=== PATIENT | female | born 1960 | race Caucasian/White ===

== ENCOUNTER 2024-11-05 17:26 | Inpatient (IN) | payer MEDICAID ==
[~2024-11-05] VITALS: Ht 154.9 cm; Wt 69.9 kg
[2024-11-05 17:36] LABS: BILIRUBIN Negative (Negative); BLOOD Negative (Negative); CLARITY Cloudy (Clear); COLOR Yellow (Yellow); KETONE Negative (Negative); LEUKO ESTERASE 3+ (Negative); NITRITE Positive (Negative); PH 5.5 (4.5-8.0); SPECIFIC GRAVITY 1.010 (1.001-1.030); UROBILINOGEN 0.2 E.U./dl (0.0-1.0)
[2024-11-05 17:47] VITALS: BP 124/76
[2024-11-05 17:52] LABS: BASO # 0.1 10*3/uL (0.0-0.1); BASO % 0.8 % (0.0-1.0); EOS # 0.6 10*3/uL (0.0-0.4); EOS % 8.7 % (1.0-4.0); MEAN CELL VOLUME 91.5 fl (81.0-99.0); MEAN CORPUSCULAR HGB 29.9 pg (27.0-31.0); MEAN PLATELET VOLUME 9.1 fl (9.6-12.3); MONO # 0.3 10*3/uL (0.1-1.0); MONO % 5.2 % (3.0-9.0); NEUT # 4.4 10*3/uL (2.3-7.9); NEUT % 68.9 % (47.0-73.0); NUCLEATED RED BLOOD CELL 0.0 % (0.0-0.0); NUCLEATED RED BLOOD CELL 0.0 10*3/uL (0.0-0.0); PLATELET COUNT AUTOMATED 246 10*3/uL (130-400); RED CELL DISTRI WIDTH 13.5 % (0-14.5)
[2024-11-05 17:53] LABS: BACTERIA 3+; WBC TNTC wbc/hpf (0-5)
[2024-11-05 17:56] LABS: URINE AMPHETAMINES Negative (1000ng/ml); URINE BARBITURATES Negative (200ng/ml); URINE BENZODIAZEPINES Negative (200ng/ml); URINE CANNABINOIDS (THC) Negative (50ng/ml); URINE COCAINE Negative (300ng/ml); URINE METHADONE Negative (300ng/ml); URINE OPIATES Negative (300ng/ml); URINE PHENCYCLIDINE Negative (25ng/ml)
[2024-11-05 18:27] LABS: BUN 16 mg/dl (9-23); SGPT/ALT 15 U/L (5-49)
[2024-11-05 18:28] LABS: ETHYL ALCOHOL < 3.0 mg/dl (<3)
[2024-11-05] MEDS ORDERED: CEPHALEXIN 500 MG CAP PO ONE (18:30)
[2024-11-05 19:43] VITALS: BP 151/68
[2024-11-05] MEDS ORDERED: PROBIOTIC GOLD1 EACH PO (20:13)
[2024-11-05] MEDS ORDERED: AMBIEN5 MG PO (20:13)
[2024-11-05] MEDS ORDERED: VITAMIN C500 M4 PO (20:15)
[2024-11-05] MEDS ORDERED: ARTIFICIAL TEAR1514 OPH (20:15)
[2024-11-05] MEDS ORDERED: ASPERCREME LID113 G1 T (20:16)
[2024-11-05] MEDS ORDERED: ASPIRIN FOR CHI81 MG PO (20:17)
[2024-11-05] MEDS ORDERED: [UNRECOGNIZED DRUG - OTHER] PO (20:18)
[2024-11-05] MEDS ORDERED: BUDESONIDE-FO10.2 G1 INH (20:20)
[2024-11-05] MEDS ORDERED: CAPLYTA42 MG PO (20:22)
[2024-11-05] MEDS ORDERED: CALCIUM CARBON500 M3 PO (20:22)
[2024-11-05] MEDS ORDERED: CLOBETASOL PROP15 GM T (20:23)
[2024-11-05] MEDS ORDERED: CYCLOBENZAPRINE5 M3 PO (20:24)
[2024-11-05] MEDS ORDERED: DOXEPIN HCL6 MG PO (20:25)
[2024-11-05] MEDS ORDERED: DELSYM30 MG/5 M1 PO (20:25)
[2024-11-05] MEDS ORDERED: ERYTHROMYCIN OPH1 GM OPH (20:26)
[2024-11-05] MEDS ORDERED: FEMRING1 EACH V (20:28)
[2024-11-05] MEDS ORDERED: FEOSOL325 MG PO (20:28)
[2024-11-05] MEDS ORDERED: 24 HOUR ALLERG9.9 ML NAS (20:29)
[2024-11-05] MEDS ORDERED: NATURE'S BLEND F1 MG PO (20:30)
[2024-11-05] MEDS ORDERED: HEMORRHOID 1%-156 GM R (20:31)
[2024-11-05] MEDS ORDERED: HYDROXYCHLOROQ200 M1 PO (20:31)
[2024-11-05] MEDS ORDERED: LAMICTAL150 MG PO (20:32)
[2024-11-05] MEDS ORDERED: LEVOTHYROXINE125 MCG PO (20:32)
[2024-11-05] MEDS ORDERED: METHENAMINE HIPP1 G1 PO (20:33)
[2024-11-05] MEDS ORDERED: METHOTREXA25 MG/1 M6 SQ (20:34)
[2024-11-05] MEDS ORDERED: MILK OF MA400 MG/53 PO (20:34)
[2024-11-05] MEDS ORDERED: PROTONIX40 MG PO (20:35)
[2024-11-05] MEDS ORDERED: PEPCID20 MG PO (20:36)
[2024-11-05] MEDS ORDERED: PROMETHAZINE12.5 M3 PO (20:36)
[2024-11-05] MEDS ORDERED: REFRESH LIQUIGE15 M1 OPH (20:38)
[2024-11-05] MEDS ORDERED: TEGRETOL-XR200 MG PO (20:40)
[2024-11-05] MEDS ORDERED: EASIVENT CHAMBE1 KIT PO (20:40)
[2024-11-05] MEDS ORDERED: TYLENOL EXTRA500 MG PO (20:41)
[2024-11-05] MEDS ORDERED: VISTARIL25 MG PO ×2 (20:43→20:44)
[2024-11-05] MEDS ORDERED: VENT7GM INH (20:43)
[2024-11-05] MEDS ORDERED: VITAMIN D3125 MCG PO (20:44)
[2024-11-05] MEDS ORDERED: ZYRTEC10 M2 PO (20:46)
[2024-11-05] MEDS ORDERED: XIIDRA1 EACH OP (20:47)
[2024-11-05] MEDS ORDERED: Water, Sterile 10 ML VIAL IM PRN (21:00)
[2024-11-05] MEDS ORDERED: Doxepin Hydrochloride 10 MG/ML OZ PO SCH (21:00)
[2024-11-05] MEDS ORDERED: LORazepam 1 MG TAB PO PRN (21:00)
[2024-11-05] MEDS ORDERED: risperiDONE 1 MG TAB PO SCH (21:00)
[2024-11-05] MEDS ORDERED: hydrOXYzine hydrochloride 50 MG/ML VIAL IM PRN (21:00)
[2024-11-05] MEDS ORDERED: LAMOTRIGINE 100 MG TAB PO SCH (21:00)
[2024-11-05 21:14] VITALS: BP 124/67
[2024-11-05] MEDS ORDERED: ACETAMINOPHEN 325 MG TAB PO PRN (22:15)
[2024-11-05] MEDS ORDERED: MG-AL HYDROXIDE/SIMETICONE 30 ML UDC PO PRN (22:15)
[2024-11-05] MEDS ORDERED: Menthol/Zinc Oxide 4 GM THIN T PRN (22:35)
[2024-11-06] MEDS ORDERED: CEPHALEXIN 500 MG CAP PO SCH (06:25)
[2024-11-06 06:53] LABS: BASO # 0.1 10*3/uL (0.0-0.1); BASO % 1.2 % (0.0-1.0); EOS # 0.7 10*3/uL (0.0-0.4); EOS % 10.0 % (1.0-4.0); MEAN CELL VOLUME 91.3 fl (81.0-99.0); MEAN CORPUSCULAR HGB 30.0 pg (27.0-31.0); MEAN PLATELET VOLUME 9.5 fl (9.6-12.3); MONO # 0.4 10*3/uL (0.1-1.0); MONO % 6.5 % (3.0-9.0); NEUT # 3.9 10*3/uL (2.3-7.9); NEUT % 59.9 % (47.0-73.0); NUCLEATED RED BLOOD CELL 0.0 % (0.0-0.0); NUCLEATED RED BLOOD CELL 0.0 10*3/uL (0.0-0.0); PLATELET COUNT AUTOMATED 261 10*3/uL (130-400); RED CELL DISTRI WIDTH 13.7 % (0-14.5)
[2024-11-06 06:55] LABS: BUN 17 mg/dl (9-23); CARBAMAZEPINE (TEGRETOL) TOTAL 6.9 ug/ml (4-12); LDL CHOLESTEROL 64 mg/dL (9-159); SGPT/ALT 15 U/L (5-49)
[2024-11-06] MEDS ORDERED: Hypromellose 25 ML BOT OPH SCH (07:00)
[2024-11-06 08:04] VITALS: BP 93/65
[2024-11-06 08:32] LABS: VITAMIN D, 25-HYDROXY 59.1 ng/mL (30-100)
[2024-11-06] MEDS ORDERED: ASPIRIN, CHEWABLE 81 MG TAB PO SCH (09:00)
[2024-11-06] MEDS ORDERED: FERROUS SULFATE 325 MG TAB PO SCH (09:00)
[2024-11-06] MEDS ORDERED: BUDESONIDE 0.5 MG AMP NEB SCH (09:00)
[2024-11-06] MEDS ORDERED: ASCORBIC ACID 500 MG TAB PO SCH (09:00)
[2024-11-06] MEDS ORDERED: FOLIC ACID 1 MG TAB PO SCH (09:00)
[2024-11-06] MEDS ORDERED: Cholecalciferol 5,000 IU CAP (125 MCG) PO SCH (09:00)
[2024-11-06] MEDS ORDERED: XIIDRA 5% OPH SCH (09:00)
[2024-11-06] MEDS ORDERED: risperiDONE 0.5 MG TAB PO SCH (09:00)
[2024-11-06] MEDS ORDERED: FLUTICASONE PROPIONATE Nasal 16 Gm spray NAS SCH (10:00)
[2024-11-06 20:00] VITALS: BP 114/74
[2024-11-07 08:29] VITALS: BP 100/60
[2024-11-07 19:57] VITALS: BP 110/61
[2024-11-08 08:00] VITALS: BP 105/63
[2024-11-08 20:00] VITALS: BP 101/58
[2024-11-09 08:00] VITALS: BP 98/64
[2024-11-09 20:00] VITALS: BP 115/73
[2024-11-10 08:48] VITALS: BP 120/73
[2024-11-10 20:00] VITALS: BP 113/67
[2024-11-11 07:24] LABS: BASO # 0.1 10*3/uL (0.0-0.1); BASO % 1.3 % (0.0-1.0); EOS # 0.7 10*3/uL (0.0-0.4); EOS % 13.4 % (1.0-4.0); MEAN CELL VOLUME 93.4 fl (81.0-99.0); MEAN CORPUSCULAR HGB 30.0 pg (27.0-31.0); MEAN PLATELET VOLUME 9.0 fl (9.6-12.3); MONO # 0.6 10*3/uL (0.1-1.0); MONO % 11.0 % (3.0-9.0); NEUT # 2.6 10*3/uL (2.3-7.9); NEUT % 48.1 % (47.0-73.0); NUCLEATED RED BLOOD CELL 0.0 % (0.0-0.0); NUCLEATED RED BLOOD CELL 0.0 10*3/uL (0.0-0.0); PLATELET COUNT AUTOMATED 248 10*3/uL (130-400); RED CELL DISTRI WIDTH 14.0 % (0-14.5)
[2024-11-11 07:47] LABS: BUN 17 mg/dl (9-23); SGPT/ALT 13 U/L (5-49)
[2024-11-11 08:00] VITALS: BP 126/66
[2024-11-11] MEDS ORDERED: ACETAMINOPHEN 325 MG/10.15 ML UDC PO PRN (10:35)
[2024-11-11] MEDS ORDERED: METHOTREXATE SQ SCH (16:00)
[2024-11-11 20:00] VITALS: BP 101/62
[2024-11-12 08:00] VITALS: BP 97/61
[2024-11-12 20:00] VITALS: BP 136/81
[2024-11-13 08:31] VITALS: BP 90/48
[2024-11-13] MEDS ORDERED: FEOSOL325 MG PO (11:15)
[2024-11-13] MEDS ORDERED: VITAMIN D3125 MC1 PO (11:26)
[2024-11-13] MEDS ORDERED: DOXEPIN HC10 MG/1 ML PO (11:26)
[2024-11-13] MEDS ORDERED: RISPERDAL1 M1 PO (11:26)
[2024-11-13] MEDS ORDERED: RISPERIDONE0.5 MG PO (11:26)
== END 2024-11-13 12:46 | DRG 753 ==
LOC: ED 17:26 → EDHOLD 18:36 → 3N 18:36
PROVIDERS: Emergency Medicine; Nurse Practitioner Women's Health; ADMIT Psychiatry & Neurology Psychiatry; ATTEND Psychiatry & Neurology Psychiatry
PROC: GZHZZZZ Group Psychotherapy (ICD-10-PCS; principal; 2024-11-06)
PROC: GZ56ZZZ Individual Psychotherapy, Supportive (ICD-10-PCS; 2024-11-06)
DX: F31.60 Bipolar disorder, current episode mixed, unspecified (principal); E44.0 Moderate protein-calorie malnutrition; N39.0 Urinary tract infection, site not specified; F41.9 Anxiety disorder, unspecified; F43.10 Post-traumatic stress disorder, unspecified; M06.8A Other specified rheumatoid arthritis, other specified site; K21.9 Gastro-esophageal reflux disease without esophagitis; G40.909 Epilepsy, unspecified, not intractable, without status epilepticus; H04.123 Dry eye syndrome of bilateral lacrimal glands; N32.81 Overactive bladder; E55.9 Vitamin D deficiency, unspecified; J30.9 Allergic rhinitis, unspecified; D50.9 Iron deficiency anemia, unspecified; R29.6 Repeated falls; M79.7 Fibromyalgia; E03.9 Hypothyroidism, unspecified; Z88.0 Allergy status to penicillin; Z88.8 Allergy status to other drugs, medicaments and biological substances; Z86.73 Personal history of transient ischemic attack (TIA), and cerebral infarction without residual deficits; Z79.899 Other long term (current) drug therapy; Z79.01 Long term (current) use of anticoagulants; Z79.2 Long term (current) use of antibiotics; Z91.09 Other allergy status, other than to drugs and biological substances; Z90.710 Acquired absence of both cervix and uterus; Z90.49 Acquired absence of other specified parts of digestive tract; Z68.29 Body mass index [BMI] 29.0-29.9, adult